=== PATIENT | female | born 1965 | race Two or more races ===

== ENCOUNTER → 2024-08-19 | Emergency (ER) | payer BC ==
[~2024-08-19] VITALS: Ht 154.9 cm; Wt 61.2 kg
[~2024-08-19] MED LIST: CLINDAMYCIN PHOSPHATE 150 MG/ML (300mg) IM STA; CLINDAMYCIN PHOSPHATE 150 MG/ML (300mg) ONE; DRAMAMINE LESS25 MG PO; PRILOSEC10 MG PO; WELLBUTRIN XL300 MG PO
[2024-08-19 13:03] LABS: HEMATOCRIT 41.1 % (36.0-45.00); HEMOGLOBIN 13.9 g/dL (12.0-15.00); MEAN CELL VOLUME 88.8 fL (80.00-100.00); MEAN CORPUSCULAR HEMOGLOBIN 30.1 pg (27.00-32.0); MEAN CORPUSCULAR HGB CONC 33.9 g/dl (32.0-36.0); PLATELET COUNT 323 K/uL (150-450); RED BLOOD COUNT 4.63 M/uL (4.00-6.00); RED CELL DISTRIBUTION WIDTH 14.1 % (11.5-14.5)
[2024-08-19 13:28] LABS: CALCIUM 9.1 mg/dL (8.5-10.1); CREATININE SERUM 0.8 mg/dL (0.55-1.02); GFR 74.2; POTASSIUM 3.53 mEq/L (3.5-5.1)
== END | disposition home or self-care (01) ==
LOC: ER 10:46
PROVIDERS: General Practice
DX: R21 Rash and other nonspecific skin eruption (principal); Z88.8 Allergy status to other drugs, medicaments and biological substances